=== PATIENT | male | born 1985 | race Caucasian/White ===

== ENCOUNTER 2018-11-24 00:51 | Inpatient (IN) | payer BC ==
[~2018-11-24] VITALS: Ht 180.3 cm; Wt 107.0 kg
--- NOTE | 2018-11-24 01:10 | NUR ---
TO BED 3 AMBULATORY WITH CRUTCHES C/O L HIP PAIN S/P GLF AROUND 1700. PT AAOX4 NO ACUTE DISTRESS NOTED, RESP EVEN AND UNLABORED. PENDING ER MD ABRAHAM.
[2018-11-24] MEDS ORDERED: ONDANSETRON 4 MG TAB.RAPDIS SL ONE (01:30)
[2018-11-24] MEDS ORDERED: MORPHINE SULFATE INJ 2 MG/ML DISP.SYRIN IM ONE (01:30)
[2018-11-24] MEDS ORDERED: MORPHINE SULFATE INJ 4 MG/ML DISP.SYRIN ONE (01:39)
[2018-11-24] MEDS ORDERED: ONDANSETRON 4 MG TAB.RAPDIS ONE (01:40)
--- NOTE | 2018-11-24 01:45 | NUR ---
PT TRANSPORTED TO RADIOLOGY FOR CT ABD/PELVIS.
--- NOTE | 2018-11-24 01:45 | NUR ---
PT MEDICATED ORDERED.
--- NOTE | 2018-11-24 01:57 | NUR ---
PT BACK FROM RADIOLOGY. PENDING CT RESULT.
--- NOTE | 2018-11-24 03:23 | NUR ---
[facility]UNO CALLED FOR CT ABD PELVIS READ.
[2018-11-24] MEDS ORDERED: CEFAZOLIN 1 GM in IV D5W 50 ML IV ONE (04:00)
--- NOTE | 2018-11-24 04:00 | NUR ---
ER MD AT BEDSIDE TALKING TO PT REGARDING CT RESULT AND HOSPITAL ADMISSION.
--- NOTE | 2018-11-24 04:04 | NUR ---
DR. AVILES ON PHONE W/ DR. ZAMBRANO
--- NOTE | 2018-11-24 04:04 | NUR ---
Dionte arthur in [facility] - 11/24/18 at 0407 by BERNADETTE MS [id number], MATTHEW RODRIGUEZ.
--- NOTE | 2018-11-24 04:08 | NUR ---
RM CHANGE TO MS 304-2, MATTHEW RODRIGUEZ.
[2018-11-24] MEDS ORDERED: CLINDAMYCIN 900 MG/6 ML VIAL ONE (04:15)
[2018-11-24] MEDS ORDERED: HYDROMORPHONE 1 MG/1 ML DISP.SYRIN ONE (04:17)
--- NOTE | 2018-11-24 04:17 | NUR ---
LAURA RODRIGUEZ, MATTHEW PAGED.
[2018-11-24 04:18] LABS: BASOPHILS # (AUTO) 0.1 /CMM (0.0-0.2); BASOPHILS % (AUTO) 0.7 % (0.0-2.0); EOSINOPHILS % (AUTO) 1.1 % (0.0-6.0); HEMATOCRIT 41 % (39-51); HEMOGLOBIN 14.5 g/dL (13.5-17.5); LYMPHOCYTES # (AUTO) 3.6 /CMM (0.8-4.8); MEAN CORPUSCULAR HGB CONC 35 g/dl (31.0-36.0); MEAN CORPUSCULAR VOLUME 87 fL (80-96); MONOCYTES # (AUTO) 0.7 /CMM (0.1-1.30); MONOCYTES % (AUTO) 7.4 % (2.0-12.0); NEUTROPHILS % (AUTO) 52.8 % (43.0-81.0); PLATELET COUNT (AUTO) 213 /CMM (150-450); RED BLOOD CELL COUNT(AUTO) 4.76 MIL/uL (4.5-6.0); WHITE BLOOD COUNT (AUTO) 9.4 K/uL (4.3-11.0)
--- NOTE | 2018-11-24 04:19 | NUR ---
RN AT BEDSIDE TO MEDICATE PT.
[2018-11-24 04:20] LABS: APPEARANCE,URINE Clear (CLEAR); BILIRUBIN,URINE Negative (NEGATIVE); BLOOD, URINE Negative Ery/uL (NEGATIVE); COLOR,URINE Yellow (YELLOW); KETONES,URINE Trace (NEGATIVE); LEUKOCYTE ESTERASE ,URINE Negative (NEGATIVE); NITRITE, URINE Negative (NEGATIVE); PH,URINE 5.5 (5.0-8.0); PROTEIN,URINE Negative (NEGATIVE); UGLUCOSE Negative (NEGATIVE); UROBILINOGEN,URINE 0.2 EU/dL (0.2)
[2018-11-24 04:25] LABS: CALCIUM, SERUM 8.9 mg/dL (8.5-10.1); CREATININE 1.1 mg/dL (0.6-1.3); POTASSIUM 4.3 mmol/L (3.5-5.1)
[2018-11-24] MEDS ORDERED: HYDROMORPHONE INJ 0.5 MG/0.5 ML SYRINGE IV ONE (04:30)
[2018-11-24] MEDS ORDERED: CLINDAMYCIN 900 MG in IV D5W 100 ML IV ONE (04:30)
[2018-11-24 04:31] LABS: ALBUMIN 4.1 g/dL (3.4-5.0); BILIRUBIN,DIRECT 0.1 mg/dL (0.0-0.2); BILIRUBIN,TOTAL 0.6 mg/dL (0.2-1.0); TOTAL PROTEIN, SERUM 7.1 g/dL (6.4-8.2)
--- NOTE | 2018-11-24 04:45 | NUR ---
REPORT CALLED TO M/S SPENCER CABRERA. WILL TRANSPORT PT TO ROOM 304.
[2018-11-24] MEDS ORDERED: IV NS 0.9% 1,000 ML IV PRN (04:49)
[2018-11-24] MEDS ORDERED: HYDROMORPHONE INJ 2 MG/ML DISP.SYRIN IV PRN (05:00)
[2018-11-24] MEDS ORDERED: Z GUARD REMEDY 2 OZ OINT TP PRN (05:00)
[2018-11-24] MEDS ORDERED: HYDROCODONE/APAP 5/325MG 1 EACH TABLET PO PRN (05:00)
[2018-11-24] MEDS ORDERED: MAG HYDROX/AL HYDROX/SIMETH 30 ML UDC PO PRN (05:00)
[2018-11-24] MEDS ORDERED: ZOLPIDEM TARTRATE 5 MG TABLET PO PRN (05:00)
[2018-11-24] MEDS ORDERED: ACETAMINOPHEN 325 MG TABLET PO PRN (05:00)
[2018-11-24] MEDS ORDERED: ONDANSETRON HCL/PF 4 MG/2 ML VIAL IVP PRN (05:00)
[2018-11-24] MEDS ORDERED: MAGNESIUM HYDROXIDE 30 ML UDC PO PRN (05:00)
[2018-11-24 05:03] LABS: BACTERIA,URINE None seen /HPF (None Seen); RBC,URINE 0-2 /HPF (0-2); SQUAMOUS EPITHELIAL CELL,UR Few /HPF (None Seen); WBC,URINE 0-2 /HPF (0-3)
[2018-11-24 05:30] VITALS: BP 127/69
--- NOTE | 2018-11-24 05:45 | NUR ---
MS/RN RECEIVED PATIENT FROM [facility] VIA [facility]. PATIENT WAS AWAKE, ALERT, ORIENTED, COMFORTABLE, NO C/O PAIN, NO DISTRESS NOTED, ADMISSION DONE PER PROTOCOL, PLAN OF CARE DISCUSSED, VERBALIZED UNDERSTANDING AND AGREEMENT TO THE PLAN OF CARE, NPO STATUS. HEMATOMA AT LEFT HIP NOTED, PHOTO WAS TAKEN, OTHERWISE PATIENT REFUSED TO SKIN ASSESSMENT. WILL MONITOR,.
--- NOTE | 2018-11-24 07:28 | NUR ---
RN OPENING NOTES PT AWAKE AND RESTING IN BED. NO COMPLAINTS OF PAIN, SOB OR DISTRESS AT THIS TIME. FAMILY AT BEDSIDE. PT HAS A LEFT AC #18 IV RUNNING NS@75ML/HR, PATIENT TOLERATING FLUIDS WELL. AWAITING MD CONSULT WITH DR AVILES. SAFETY PRECAUTIONS IN PLACE, BED IN LOWEST LOCKED POSITION, X2 SIDE RAILS UP AND CALL LIGHT WITHIN REACH. WILL CONTINUE TO MONITOR.
[2018-11-24 08:34] VITALS: BP 110/70
[2018-11-24] MEDS ORDERED: HYDR-4354 PO (10:49)
[2018-11-24] MEDS ORDERED: HYDROMORPHONE INJ 2 MG/ML DISP.SYRIN IV ONE (11:00)
--- NOTE | 2018-11-24 12:26 | NUR ---
RECYCLING PROGRAM MANAGER NOTES PT STABLE AT DISCHARGE. ALL PT BELONGINGS TAKEN HOME WITH PATIENT. ID BAND AND IV REMOVED PRIOR TO DISCHARGE. PT LILIAN TAKING PATIENT HOME IN PRIVATE CAR. ALL DISCHARGE PAPERWORK, EXPLAINED, COPIED, SIGNED AND GIVEN TO PATIENT. RX GIVEN TO PATIENT AT DISCHARGE. PT TAKEN OFF UNIT VIA WHEELCHAIR BY RN AT 122
== END 2018-11-24 12:35 | disposition home or self-care (01) | DRG 605 ==
LOC: ER 00:57 → MED 04:29
PROVIDERS: ADMIT Nurse Practitioner Acute Care; ATTEND Nurse Practitioner Acute Care
DX: S70.12XA Contusion of left thigh, initial encounter (principal); D68.59 Other primary thrombophilia; S30.1XXA Contusion of abdominal wall, initial encounter; E66.9 Obesity, unspecified; Z68.32 Body mass index [BMI] 32.0-32.9, adult; Y93.89 Activity, other specified; Y92.009 Unspecified place in unspecified non-institutional (private) residence as the place of occurrence of the external cause; X58.XXXA Exposure to other specified factors, initial encounter
CPT/HCPCS: 36415; 80048-TC; 80076-TC; 81000-TC; 83690-TC; 85025-TC; 85730-TC; 87081-TC; 97116-TC; 97530-TC; G0378; J0690; J1170; J2270; J3490; J7030; J7060; Q0162